=== PATIENT | female | born 1985 | race Caucasian/White ===

== ENCOUNTER 2016-11-12 11:45 | Emergency (ER) | payer MEDICAID ==
[~2016-11-12] VITALS: Ht 160 cm; Wt 50.0 kg
[~2016-11-12 11:45] MED LIST: AMOX500T PO; CLIN1CAP5 PO; CLON1 PO; DICL75TA PO; MAGICPED SWISH-SWAL; PERI0.126 SWISH-SPIT; SUBO8MIS SL
[2016-11-12 11:47] VITALS: BP 140/78; PULSE 98; RESP 20; TEMP 98.8; O2SAT 99
--- NOTE | 2016-11-12 11:54 | PD ---
Physical Exam Date Seen by Provider: November 12, 2016 Time Seen by Provider: 11:52 Narrative 31 year old female presents to the emergency department for evaluation of dysuria, urinary frequency, urinary urgency for 1 week. Patient denies flank pain, fevers, nausea, vomiting. Patient denies any abnormal vaginal discharge. Vital signs reviewed. Patient seen in triage, awaiting bed placement. Data Data Last Documented VS Vital Signs Date Time Temp Pulse Resp B/P Pulse Ox O2 Delivery O2 Flow Rate FiO2 11/12/16 11:47 98.8 98 20 140/78 99 Room Air [facility] Supervised Visit with FERMÍN: Rosaline eMjia November 12, 2016 11:54
--- NOTE | 2016-11-12 12:05 | PD ---
HPI Chief Complaint: Complaint Time Seen by Provider: 12:04 Travel History International Travel<30 days: No Contact w/Intl Traveler<30days: No Traveled to known affect area: No History of Present Illness HPI 31-year-old female presents to the ED for evaluation of 3 day history of dysuria , urinary urgency and urinary frequency. She denies fevers, chills, abdominal pain, nausea, vomiting, flank pain,back pain, vaginal discharge. LMP 11/08/16. She treated with ibuprofen with only mild improvement of symptoms. PFSH Past Medical History Hx Anticoagulant Therapy: No Depression: Yes Cardiovascular Problems: Yes (HEART MURMUR ) Chemotherapy: No Cerebrovascular Accident: No Diabetes: No Diminished Hearing: No Headaches: Yes Musculoskeletal: Yes (BACK PROBLEM SINCE GIVING 04/16/07) Respiratory: No Immunizations Current: No ?: Not LMP: 11/05/16 : 1 Past Surgical History Hysterectomy: No Social History Alcohol Use: Yes ("NOT REALLY") Tobacco Use: Yes (1 PPD) Substance Use: Yes (Hx, CANNOT BE PRESCRIBED NARCOTICS PER PT ) Allergies-Medications (Allergen,Severity, Reaction): Coded Allergies: Codeine (Verified Allergy, Intermediate, HIVES, 11/12/16) Tylenol #3 (Verified Allergy, Unknown, 11/12/16) Darvocet-N 100 (Verified Adverse Reaction, Intermediate, NAUSEA, VOMITING , ABD PAIN, 11/12/16) Reported Meds & Prescriptions Reported Meds & Active Scripts Active Reported Klonopin (Clonazepam) 1 Mg Tab 1 Mg PO BID Suboxone Sublingual Film (Buprenorphine-Naloxone Sublingual Film) 8-2 Mg Film 1 Film SL Unique ID number required: Review of Systems Except as stated in HPI: all other systems reviewed are Neg Physical Exam Narrative GENERAL: Well-nourished, well-developed nontoxic appearing white female in no acute distress. SKIN: Focused skin assessment warm/dry. HEAD: Normocephalic. EYES: No scleral icterus. No injection or drainage. NECK: Supple, trachea midline. No JVD or lymphadenopathy. CARDIOVASCULAR: Regular rate and rhythm without murmurs, gallops, or rubs. RESPIRATORY: Breath sounds clear and equal bilaterally. No accessory muscle use. GASTROINTESTINAL: Abdomen soft, non-tender, nondistended. No suprapubic tenderness. Active bowel sounds. MUSCULOSKELETAL: No cyanosis, or edema. The patient is ambulatory and moves the extremities spontaneously. BACK: Nontender without obvious deformity. No CVA tenderness. Data Data Last Documented VS Vital Signs Date Time Temp Pulse Resp B/P Pulse Ox O2 Delivery O2 Flow Rate FiO2 11/12/16 11:47 98.8 98 20 140/78 99 Room Air Orders Urinalysis - C+S If Indicated (11/12/16 12:07) Urine Culture (11/12/16 12:08) Labs Laboratory Tests Test 11/12/16 12:08 Urine Color LIGHT-YELLOW Urine Turbidity HAZY Urine pH 5.5 Urine Specific [place] 1.009 Urine Protein NEG mg/dL Urine Glucose (UA) NEG mg/dL Urine Ketones NEG mg/dL Urine Occult Blood SMALL Urine Nitrite NEG Urine Bilirubin NEG Urine Urobilinogen LESS THAN 2.0 MG/DL Urine Leukocyte Esterase LARGE Urine RBC 11 /hpf Urine WBC 104 /hpf Urine WBC Clumps FEW Urine Squamous Epithelial 5 /hpf Cells Urine Bacteria RARE /hpf Urine Mucus FEW /lpf Microscopic Urinalysis Comment CULTURE INDICATED MDM Medical Decision Making Medical Screen Exam Complete: Yes Emergency Medical Condition: Yes Differential Diagnosis cystitis versus pyelonephritis versus STI versus vaginitis versus other Narrative Course 31-year-old female presents to the ED for evaluation of 3 day history of dysuria , urinary urgency and urinary frequency. She denies fevers, chills, abdominal pain, nausea, vomiting, flank pain,back pain, vaginal discharge. LMP 11/08/16. Vitals reviewed. Physical exam is reassuring. UA hazy, small occult blood, large leukocyte esterase, 11 RBCs, 104 wbc's, few clumps, rare bacteria. Culture pending. Patient was prescribed Bactrim DS twice a day 3 days. She is instructed to finish all medication, even if symptoms resolve, follow up with the primary care provider. She indicated understanding of instructions and is agreeable to the care plan. The patient is stable and discharged home. Diagnosis Primary Impression: Acute cystitis Qualified Code: N30.00 - Acute cystitis without hematuria Referrals: Primary Care Physician Patient Instructions: General Instructions, Urinary Tract Infection in Women ( ED) Additional Instructions: Take all antibiotics as prescribed, even if your symptoms resolve. Follow-up with primary care provider. Return to the ED for any urgent or emergent medical condition. Med/Other Pt SpecificInfo: Prescription(s) given Scripts Sulfamethoxazole-Trimethoprim (Bactrim DS)800-160 Mg Tab1 Tab PO BID #6 TAB Ref 0 Prov:Audi Sandoval MD 11/12/16 Disposition: 01 DISCHARGE HOME Condition: Stable Sherlyn Avery November 12, 2016 12:04
[2016-11-12] MEDS ORDERED: SUBO8MIS SL (12:07)
[2016-11-12] MEDS ORDERED: CLON1 PO (12:07)
[2016-11-12 12:30] LABS: BACTERIA, URINE RARE /hpf; BLOOD, URINE SMALL (NEG); COMMENT (UR) CULTURE INDICATED; CULTURE IF INDICATED CULTURE INDICATED; GLUCOSE,URINE NEG (NEG); KETONE, URINE NEG (NEG); MUCUS URINE FEW /lpf (OCC); NITRITE,URINE NEG (NEG); PH, URINE 5.5 (5.0-8.5); SQUAMOUS EPITHELIAL CELL URINE 5 /hpf (0-5); URINE COLOR LIGHT-YELLOW (YELLW/STRAW)
[2016-11-12] MEDS ORDERED: BACT800T5 PO (12:36)
== END 2016-11-12 12:52 | disposition home or self-care (01) ==
LOC: NEPD 11:45
DX: N30.00 Acute cystitis without hematuria (principal); B96.20 Unspecified Escherichia coli [E. coli] as the cause of diseases classified elsewhere
CPT/HCPCS: 81001; 87077; 87086; 87186; 99283

== ENCOUNTER 2017-05-04 18:37 | Emergency (ER) | payer MEDICAID ==
[~2017-05-04] VITALS: Ht 160 cm; Wt 54.5 kg
[~2017-05-04 18:37] MED LIST changes: -AMOX500T PO; +BACT800T5 PO; -CLIN1CAP5 PO; -DICL75TA PO; -MAGICPED SWISH-SWAL; -PERI0.126 SWISH-SPIT
[2017-05-04 18:38] VITALS: BP 127/64; PULSE 105; RESP 18; TEMP 98.8; O2SAT 97
[2017-05-04 19:57] VITALS: BP 134/82; PULSE 83; RESP 18; O2SAT 100
[2017-05-04] MEDS ORDERED: PENI500T PO ×2 (20:01)
[2017-05-04] MEDS ORDERED: HYDR-3534 PO ×2 (20:01)
[2017-05-04] MEDS ORDERED: KETOROLAC TROMETHAMINE 60 MG/2 ML (IM) VIAL IM ONE ×2 (20:15)
[2017-05-04] MEDS ORDERED: CLINDAMYCIN 150 MG CAP PO ONE ×2 (20:15)
[2017-05-04] MEDS ORDERED: CLEO300C2 PO ×2 (20:16)
--- NOTE | 2017-05-04 20:26 | PD ---
HPI Chief Complaint: Oral / Dental Pain or Problem Time Seen by Provider: 20:20 Travel History International Travel<30 days: No Contact w/Intl Traveler<30days: No Traveled to known affect area: No History of Present Illness HPI 31-year-old white female presents to emergency department with complaints of facial pain after having dental extractions yesterday. The patient states that she had all of her upper teeth extracted at one time by [facility]. She was placed on Pen-Vee K, Lortab 10 and Motrin 800 mg. She states that when she woke up today she had severe pain which has not been relieved with her medications. She feels that she's been having swelling on the right side of her face. She is concerned that there may be infection. She denies any fever or chills. She did not contact her surgeon but rather came to the ER instead. Symptoms are moderate to severe. No alleviating factors. Exacerbated by dental extractions. PFSH Past Medical History Hx Anticoagulant Therapy: No Depression: Yes Cardiovascular Problems: Yes (MURMUR) Chemotherapy: No Cerebrovascular Accident: No Diabetes: No Diminished Hearing: No Headaches: Yes Musculoskeletal: Yes (BACK PROBLEM SINCE GIVING 04/16/07) Respiratory: No Immunizations Current: No Tetanus Vaccination: Unknown ?: Not LMP: APRIL 2017 : 1 Tubal Ligation: Yes Past Surgical History Hysterectomy: No Oral Surgery: Yes (top teeth extraction ) Social History Alcohol Use: No Tobacco Use: Yes Substance Use: No Allergies-Medications (Allergen,Severity, Reaction): Coded Allergies: acetaminophen (Unverified Allergy, Unknown, 02/21/17) codeine (Unverified Allergy, Unknown, 02/21/17) propoxyphene (Unverified Adverse Reaction, Intermediate, NAUSEA, VOMITING , ABD PAIN, 02/21/17) Reported Meds & Prescriptions Reported Meds & Active Scripts Active Cleocin (Clindamycin HCl) 300 Mg Cap 300 Mg PO Q6H 7 Days Reported Lortab (Hydrocodone-Acetaminophen) 7.5-325 Mg Tab 1-2 Tab PO Q6H PRN Penicillin V Potassium 500 Mg Tab 500 Mg PO Q6H Klonopin (Clonazepam) 1 Mg Tab 1 Mg PO BID Review of Systems General / Constitutional: No: Fever Eyes: No: Visual changes HENT: Positive: Gingival Bleeding, Dental Difficulties, No: Headaches, Sore Throat Cardiovascular: No: Chest Pain or Discomfort Respiratory: No: Shortness of Breath Gastrointestinal: No: Abdominal Pain Genitourinary: No: Dysuria Musculoskeletal: No: Pain Skin: No Rash Neurologic: No: Weakness Psychiatric: No: Depression Endocrine: No: Polydipsia Hematologic/Lymphatic: No: Easy Bruising Physical Exam Narrative GENERAL: Well-developed, well-nourished in no acute distress. Nontoxic appearing. HEAD: Patient has some soft tissue swelling of the maxilla right greater than left. There is no erythema or warmth.. EYES: Pupils equal round and reactive. Extraocular motions intact. No scleral icterus. No injection or drainage. ENT: TMs clear without erythema. The external auditory canals clear. Nose: clear . Posterior pharynx is pink and moist. No tonsillar edema or exudate. Uvula midline. Airway patent. Oral cavity reveals complete extraction of the upper dentition. Her lower dentition are in place but are heavily decayed to the gumline. The posterior pharynx is clear and patent. Patient is handling her secretions. She does have gingival edema to the upper dentition where she had extractions. Sutures are in place. NECK: Trachea midline.Supple, nontender, moves head freely. No central bony tenderness or spasm. CARDIOVASCULAR: Regular rate and rhythm without murmurs, gallops, or rubs. RESPIRATORY: Clear to auscultation. Breath sounds equal bilaterally. No wheezes , rales, or rhonchi. GASTROINTESTINAL: Abdomen soft, non-tender, nondistended. No hepato-splenomegaly , or palpable masses. No guarding. EXTREMITIES: No clubbing, cyanosis, or edema. No joint tenderness, effusion, or edema noted. BACK: Nontender without deformity or crepitance. No flank tenderness. Data Data Last Documented VS Vital Signs Date Time Temp Pulse Resp B/P (MAP) Pulse Ox O2 Delivery O2 Flow Rate FiO2 05/04/17 19:57 83 18 134/82 (99) 100 Room Air 05/04/17 18:38 98.8 Orders Orders Ketorolac Inj (Toradol Inj) (05/04/17 20:15) Clindamycin (Cleocin) (05/04/17 20:15) MDM Medical Decision Making Medical Screen Exam Complete: Yes Emergency Medical Condition: Yes Medical Record Reviewed: Yes Differential Diagnosis MDM: Moderate Differential diagnoses: Dental abscess, dental caries, osteitis, cellulitis Narrative Course Patient is status post dental extractions to the upper teeth yesterday. Patient did not contact her surgeon rather came to the ER. She is currently taking no Lortab 10, Pen-Vee K and Motrin. She'll be given additional shot of Toradol 60 mg here in the ER as well as clindamycin 300 mg by mouth. We will change her antibiotics to clindamycin and have her contact her physician for further pain control. This is dental pain, dental extractions Diagnosis Primary Impression: Dentalgia Additional Impression: dental extractions Patient Instructions: General Instructions Additional Instructions: Rest. [place]water gargles. Continue Motrin and Lortab. Stop pen VK start clindamycin.. Contact your oral surgeon tomorrow morning and notify him of your problem. And return to the ER if any problems. Med/Other Pt SpecificInfo: Prescription(s) given Scripts Clindamycin (Cleocin) 300 Mg Cap 300 MG PO Q6H for Infection for 7 Days, #28 CAP 0 Refills Prov: Rosalie Cabral DO 05/04/17 Disposition: 01 DISCHARGE HOME Condition: Stable Sb Bell May 04, 2017 20:26
== END 2017-05-04 20:54 | disposition home or self-care (01) ==
LOC: NEPD 18:37
DX: K08.89 Other specified disorders of teeth and supporting structures (principal); Z72.0 Tobacco use
CPT/HCPCS: 99282